=== PATIENT | male | born 1980 | race Caucasian/White ===

== ENCOUNTER 2019-01-26 12:36 | Inpatient (IN) | payer MEDICAID ==
[~2019-01-26] VITALS: Ht 193 cm; Wt 113.4 kg
[2019-01-26] MEDS ORDERED: piperacillin/tazo 3.375gm/50ml 50 ML IV ONE (13:05)
[2019-01-26] MEDS ORDERED: iohexol 300mg/ml 100ml inj. ONE (13:11)
[2019-01-26 13:35] LABS: BASOPHILS % (AUTO) 0.4 % (0-1); EOSINOPHILS # (AUTO) 0.1 X10'3 (0-0.9); EOSINOPHILS % (AUTO) 0.9 % (0-6); HEMATOCRIT 48.7 % (42.0-52.0); HEMOGLOBIN 15.9 g/dl (14.0-17.9); LYMPHOCYTES # (AUTO) 2.3 X10'3 (1.1-4.8); LYMPHOCYTES % (AUTO) 17.1 % (21-51); MEAN CORPUSCULAR HGB CONC 32.7 g/dL (33.0-36.5); MEAN CORPUSCULAR VOLUME 85.7 FL (78-98); MEAN PLATELET VOLUME 9.2 FL (7.4-10.4); MONOCYTES # (AUTO) 1.1 X10'3 (0-0.9); MONOCYTES % (AUTO) 7.7 % (2-12); NEUTROPHILS # (AUTO) 10.1 X10'3 (1.8-7.7); NEUTROPHILS % (AUTO) 73.9 % (42-75); PLATELET COUNT 258 X10'3 (140-440); RED BLOOD COUNT 5.68 X10'6 (4.70-6.10); WHITE BLOOD COUNT 13.7 X10'3 (4.5-11.0)
[2019-01-26] MEDS ORDERED: ondansetron/PF 4mg/2ml inj IV ONE (13:35)
[2019-01-26] MEDS: morphine 4 MG/ML inj SYRINge IV PRN ×3 (13:36→15:34)
[2019-01-26 13:51] LABS: ALANINE AMINOTRANSFERASE 37 U/L (12-78); ALBUMIN 3.8 G/DL (3.4-5.0); ALBUMIN/GLOBULIN RATIO 1.1 (1.1-1.5); ALKALINE PHOSPHATASE 108 IU/L (46-116); ANION GAP 6 (8-16); ASPARTATE AMINO TRANSFERASE 14 U/L (10-37); BILIRUBIN,TOTAL 0.6 MG/DL (0.1-1.0); BLOOD UREA NITROGEN 9 MG/DL (7-18); BUN/CREATININE RATIO 8.8 (5.4-32.0); CALCIUM 9.3 MG/DL (8.5-10.1); CHLORIDE 102 MMOL/L (99-107); CREATININE 1.02 MG/DL (0.60-1.10); GLUCOSE 106 MG/DL (70-104); MAGNESIUM 2.1 MG/DL (1.5-2.4); POTASSIUM 4.5 MMOL/L (3.5-5.1); SODIUM 138 MMOL/L (135-145); TOTAL CARBON DIOXIDE 29.8 MMOL/L (24-32); TOTAL PROTEIN 7.4 G/DL (6.4-8.2); eGFR 83 ML/MIN
--- NOTE | 2019-01-26 15:03 | NUR ---
NO ETA GOING TO [facility] AT THIS TIME.
[2019-01-26] MEDS ORDERED: Cipro HC otic suspension 10ML bottle LEFT EAR STA (15:17)
[2019-01-26] MEDS ORDERED: NO HOME MEDS (15:29)
[2019-01-26] MEDS: Cipro HC otic suspension 10ML bottle LEFT EAR SCH (15:43)
[2019-01-26] MEDS ORDERED: morphine 2 MG/ML inj. syringe IV PRN (15:50)
[2019-01-26] MEDS ORDERED: diphenhydrAMINE 25mg capsule PO PRN (15:50)
[2019-01-26] MEDS: K and/or MAG REPLACEMENT MC SCH (15:50)
[2019-01-26] MEDS ORDERED: acetaminophen 650mg rectal suppository RC PRN (15:50)
[2019-01-26] MEDS ORDERED: magnesium Cl slow-release 64mg tablet PO PRN (15:50)
[2019-01-26] MEDS ORDERED: HYDROcodone/acetaminophen 5mg/325mg tablet PO PRN (15:50)
[2019-01-26] MEDS ORDERED: potassium CL 10mEq/100ml bag 100 ML IV PRN (15:50)
[2019-01-26] MEDS ORDERED: potassium Cl 20 mEq SR tablet PO PRN ×2 (15:50)
[2019-01-26] MEDS ORDERED: magnesium 2GM in 50ml NS 50 ML IV PRN (15:50)
[2019-01-26] MEDS ORDERED: potassium Cl 40MEQ/NS 500ml 500 ML IV PRN (15:50)
[2019-01-26] MEDS ORDERED: bisacodyl 10mg suppository rectal RC PRN (15:50)
[2019-01-26] MEDS ORDERED: levoFLOXACIN-Levaquin 750MG/D5 150 ML IV SCH (15:50)
[2019-01-26] MEDS ORDERED: mag hydrox/Alum hydrox/simeth 30ml oral suspension PO PRN (15:50)
[2019-01-26] MEDS ORDERED: magnesium 4gm in 100ml NS 100 ML IV PRN (15:50)
[2019-01-26] MEDS ORDERED: acetaminophen 325mg tablet PO PRN ×2 (15:50)
[2019-01-26] MEDS ORDERED: ondansetron/PF 4mg/2ml inj IV PRN (15:50)
[2019-01-26] MEDS ORDERED: magnesium hydroxide 30ml (MOM) UD suspension PO PRN (15:50)
[2019-01-26] MEDS ORDERED: cefepime 2g/NS 100ml ADVANTAGE 100 ML IV SCH (16:40)
[2019-01-26] MEDS: HYDROcodone/acetaminophen 10/325mg tab PO PRN (16:47)
[2019-01-26] MEDS: normal saline 1000ml 1,000 ML IV SCH (18:14)
[2019-01-26 18:49] VITALS: BP 148/84
[2019-01-26] MEDS: cefepime 2g/NS 100ml ADVANTAGE 100 ML IV SCH (19:06)
--- NOTE | 2019-01-26 20:31 | NUR ---
Patient in room [facility]TH[facility] 4024. I have received report from GRETCHEN Rodriguez and had the opportunity to ask questions and assume patient care. Addendum: 01/26/19 at 2031 by Viviana Hoffman RN Amended: Links added.
[2019-01-26 22:27] VITALS: BP 164/81
--- NOTE | 2019-01-26 23:47 | NUR ---
2 mg of morphine given at 0.
[2019-01-26] MEDS: morphine 2 MG/ML inj. syringe IV PRN (23:51)
[2019-01-27] MEDS: normal saline 1000ml 1,000 ML IV SCH ×4 (00:43→19:34)
[2019-01-27 05:20] VITALS: BP 144/85
[2019-01-27 06:00] VITALS: BP 164/81
[2019-01-27 06:01] LABS: BASOPHILS # (AUTO) 0.1 X10'3 (0-0.2); BASOPHILS % (AUTO) 0.6 % (0-1); EOSINOPHILS # (AUTO) 0.1 X10'3 (0-0.9); EOSINOPHILS % (AUTO) 0.9 % (0-6); HEMATOCRIT 46.6 % (42.0-52.0); HEMOGLOBIN 15.8 g/dl (14.0-17.9); LYMPHOCYTES # (AUTO) 1.3 X10'3 (1.1-4.8); LYMPHOCYTES % (AUTO) 11.6 % (21-51); MEAN CORPUSCULAR HEMOGLOBIN 28.6 PG (27.0-31.0); MEAN CORPUSCULAR HGB CONC 33.9 g/dL (33.0-36.5); MEAN CORPUSCULAR VOLUME 84.5 FL (78-98); MEAN PLATELET VOLUME 9.2 FL (7.4-10.4); MONOCYTES # (AUTO) 0.7 X10'3 (0-0.9); MONOCYTES % (AUTO) 6.4 % (2-12); NEUTROPHILS # (AUTO) 8.8 X10'3 (1.8-7.7); NEUTROPHILS % (AUTO) 80.5 % (42-75); PLATELET COUNT 244 X10'3 (140-440); RED BLOOD COUNT 5.51 X10'6 (4.70-6.10); RED CELL DISTRIBUTION WIDTH 13.8 % (11.5-14.5); WHITE BLOOD COUNT 10.9 X10'3 (4.5-11.0)
--- NOTE | 2019-01-27 06:21 | NUR ---
Problems reprioritized. Patient report given, questions answered & plan of care reviewed with GRETCHEN Pedro. Addendum: 01/27/19 at 0621 by Viviana Hoffman RN Amended: Links added.
[2019-01-27 06:40] LABS: ALANINE AMINOTRANSFERASE 37 U/L (12-78); ALBUMIN 3.2 G/DL (3.4-5.0); ALBUMIN/GLOBULIN RATIO 0.9 (1.1-1.5); ALKALINE PHOSPHATASE 102 IU/L (46-116); ANION GAP 10 (8-16); ASPARTATE AMINO TRANSFERASE 12 U/L (10-37); BILIRUBIN,TOTAL 0.7 MG/DL (0.1-1.0); BLOOD UREA NITROGEN 10 MG/DL (7-18); BUN/CREATININE RATIO 10.3 (5.4-32.0); CALCIUM 8.1 MG/DL (8.5-10.1); CHLORIDE 102 MMOL/L (99-107); CREATININE 0.97 MG/DL (0.60-1.10); GLUCOSE 129 MG/DL (70-104); MAGNESIUM 2.4 MG/DL (1.5-2.4); POTASSIUM 4.3 MMOL/L (3.5-5.1); SODIUM 138 MMOL/L (135-145); TOTAL CARBON DIOXIDE 25.8 MMOL/L (24-32); TOTAL PROTEIN 6.7 G/DL (6.4-8.2); eGFR 88 ML/MIN
[2019-01-27] MEDS: K and/or MAG REPLACEMENT MC SCH (08:05)
[2019-01-27] MEDS: HYDROcodone/acetaminophen 10/325mg tab PO PRN ×4 (08:15→23:44)
[2019-01-27] MEDS: cefepime 2g/NS 100ml ADVANTAGE 100 ML IV SCH ×2 (08:15→19:35)
[2019-01-27 10:00] VITALS: BP 128/85
[2019-01-27] MEDS: Cipro HC otic suspension 10ML bottle LEFT EAR SCH ×2 (10:44→19:35)
[2019-01-27] MEDS: morphine 2 MG/ML inj. syringe IV PRN (16:27)
[2019-01-27] MEDS ORDERED: VANCOMYCIN LEVEL IV ONE (16:30)
[2019-01-27 18:00] VITALS: BP 133/89
--- NOTE | 2019-01-27 18:30 | NUR ---
Patient in room ORTH[facility] 4024B. I have received report from GRETCHEN Pedro and had the opportunity to ask questions and assume patient care.
--- NOTE | 2019-01-27 18:32 | NUR ---
Problems reprioritized. Patient report given, questions answered & plan of care reviewed with Michell GODINEZ.
[2019-01-27 22:00] VITALS: BP 135/76
--- NOTE | 2019-01-27 22:30 | NUR ---
changed out ear wick tonight. Patient ear canal very swollen but not red at this time. Will continue to monitor.
[2019-01-28] MEDS: HYDROcodone/acetaminophen 10/325mg tab PO PRN ×4 (05:35→23:01)
[2019-01-28] MEDS: normal saline 1000ml 1,000 ML IV SCH ×2 (05:36→17:03)
[2019-01-28 06:00] VITALS: BP 142/89
[2019-01-28 06:16] LABS: BASOPHILS % (AUTO) 0.6 % (0-1); EOSINOPHILS # (AUTO) 0.3 X10'3 (0-0.9); EOSINOPHILS % (AUTO) 3.5 % (0-6); HEMATOCRIT 44.3 % (42.0-52.0); HEMOGLOBIN 14.9 g/dl (14.0-17.9); LYMPHOCYTES # (AUTO) 1.9 X10'3 (1.1-4.8); LYMPHOCYTES % (AUTO) 24.1 % (21-51); MEAN CORPUSCULAR HEMOGLOBIN 28.4 PG (27.0-31.0); MEAN CORPUSCULAR HGB CONC 33.7 g/dL (33.0-36.5); MEAN CORPUSCULAR VOLUME 84.4 FL (78-98); MEAN PLATELET VOLUME 9.4 FL (7.4-10.4); MONOCYTES # (AUTO) 0.6 X10'3 (0-0.9); MONOCYTES % (AUTO) 7.9 % (2-12); NEUTROPHILS % (AUTO) 63.9 % (42-75); PLATELET COUNT 240 X10'3 (140-440); RED BLOOD COUNT 5.25 X10'6 (4.70-6.10); RED CELL DISTRIBUTION WIDTH 13.9 % (11.5-14.5); WHITE BLOOD COUNT 7.8 X10'3 (4.5-11.0)
--- NOTE | 2019-01-28 06:20 | NUR ---
Problems reprioritized. Patient report given, questions answered & plan of care reviewed with Cesia Jackson.
[2019-01-28 06:37] LABS: ALANINE AMINOTRANSFERASE 39 U/L (12-78); ALBUMIN/GLOBULIN RATIO 0.9 (1.1-1.5); ANION GAP 6 (8-16); ASPARTATE AMINO TRANSFERASE 16 U/L (10-37); BILIRUBIN,TOTAL 0.5 MG/DL (0.1-1.0); BLOOD UREA NITROGEN 10 MG/DL (7-18); BUN/CREATININE RATIO 10.5 (5.4-32.0); CALCIUM 7.9 MG/DL (8.5-10.1); CHLORIDE 104 MMOL/L (99-107); CREATININE 0.95 MG/DL (0.60-1.10); GLUCOSE 114 MG/DL (70-104); POTASSIUM 3.9 MMOL/L (3.5-5.1); SODIUM 139 MMOL/L (135-145); TOTAL CARBON DIOXIDE 28.6 MMOL/L (24-32); TOTAL PROTEIN 6.4 G/DL (6.4-8.2); eGFR 90 ML/MIN
[2019-01-28 06:38] LABS: ALKALINE PHOSPHATASE 104 IU/L (46-116)
[2019-01-28] MEDS: K and/or MAG REPLACEMENT MC SCH (08:00)
[2019-01-28] MEDS: morphine 2 MG/ML inj. syringe IV PRN ×2 (08:02→19:18)
[2019-01-28] MEDS ORDERED: VANCOMYCIN LEVEL IV ONE (08:30)
[2019-01-28] MEDS: cefepime 2g/NS 100ml ADVANTAGE 100 ML IV SCH ×2 (08:35→19:18)
[2019-01-28] MEDS: Cipro HC otic suspension 10ML bottle LEFT EAR SCH ×2 (08:36→19:18)
[2019-01-28 10:00] VITALS: BP 128/70
[2019-01-28 18:00] VITALS: BP 124/87
--- NOTE | 2019-01-28 18:09 | NUR ---
PAGER ID: [phone] MESSAGE: Renetta aranda [phone] re Steven Forte in [id number]- he is requesting a sleeping pill for tonight as he was not able to sleep well last night
[2019-01-28] MEDS ORDERED: temazepam 15mg capsule PO PRN (18:15)
--- NOTE | 2019-01-28 18:18 | NUR ---
Patient in room ORTHO 4024B. I have received report from GRETCHEN FREITAS and had the opportunity to ask questions and assume patient care.
[2019-01-28] MEDS: lactobacillus rhamnosus 10,000 MMU CELLS/CAPSULE PO SCH (19:18)
[2019-01-28 21:53] VITALS: BP 166/86
[2019-01-29] MEDS: normal saline 1000ml 1,000 ML IV SCH (03:47)
[2019-01-29] MEDS: HYDROcodone/acetaminophen 10/325mg tab PO PRN (04:29)
[2019-01-29 06:00] VITALS: BP 138/78
--- NOTE | 2019-01-29 06:19 | NUR ---
Problems reprioritized. Patient report given, questions answered & plan of care reviewed with GRETCHEN FREITAS.
[2019-01-29 06:30] LABS: BASOPHILS % (AUTO) 0.5 % (0-1); EOSINOPHILS # (AUTO) 0.3 X10'3 (0-0.9); EOSINOPHILS % (AUTO) 4.6 % (0-6); HEMATOCRIT 43.5 % (42.0-52.0); HEMOGLOBIN 14.5 g/dl (14.0-17.9); MEAN CORPUSCULAR HEMOGLOBIN 28.5 PG (27.0-31.0); MEAN CORPUSCULAR HGB CONC 33.4 g/dL (33.0-36.5); MEAN CORPUSCULAR VOLUME 85.1 FL (78-98); MEAN PLATELET VOLUME 9.1 FL (7.4-10.4); MONOCYTES # (AUTO) 0.6 X10'3 (0-0.9); MONOCYTES % (AUTO) 8.6 % (2-12); NEUTROPHILS # (AUTO) 4.3 X10'3 (1.8-7.7); NEUTROPHILS % (AUTO) 58.3 % (42-75); PLATELET COUNT 243 X10'3 (140-440); RED BLOOD COUNT 5.11 X10'6 (4.70-6.10); RED CELL DISTRIBUTION WIDTH 13.9 % (11.5-14.5); WHITE BLOOD COUNT 7.3 X10'3 (4.5-11.0)
[2019-01-29 06:48] LABS: ALANINE AMINOTRANSFERASE 32 U/L (12-78); ALBUMIN 2.9 G/DL (3.4-5.0); ALBUMIN/GLOBULIN RATIO 0.9 (1.1-1.5); ALKALINE PHOSPHATASE 96 IU/L (46-116); ANION GAP 6 (8-16); ASPARTATE AMINO TRANSFERASE 11 U/L (10-37); BILIRUBIN,TOTAL 0.5 MG/DL (0.1-1.0); BLOOD UREA NITROGEN 11 MG/DL (7-18); BUN/CREATININE RATIO 12.5 (5.4-32.0); CALCIUM 7.7 MG/DL (8.5-10.1); CHLORIDE 105 MMOL/L (99-107); CREATININE 0.88 MG/DL (0.60-1.10); GLUCOSE 107 MG/DL (70-104); POTASSIUM 3.7 MMOL/L (3.5-5.1); SODIUM 139 MMOL/L (135-145); TOTAL CARBON DIOXIDE 27.8 MMOL/L (24-32); TOTAL PROTEIN 6.3 G/DL (6.4-8.2); eGFR > 90 ML/MIN
[2019-01-29 07:30] LABS: PHOSPHORUS 3.7 MG/DL (2.3-4.5)
[2019-01-29] MEDS: K and/or MAG REPLACEMENT MC SCH (08:00)
[2019-01-29] MEDS: lactobacillus rhamnosus 10,000 MMU CELLS/CAPSULE PO SCH (08:14)
[2019-01-29] MEDS: Cipro HC otic suspension 10ML bottle LEFT EAR SCH (08:14)
[2019-01-29] MEDS: cefepime 2g/NS 100ml ADVANTAGE 100 ML IV SCH (08:14)
[2019-01-29 10:00] VITALS: BP 133/94
[2019-01-29] MEDS ORDERED: LACT1CAP26 PO (10:24)
[2019-01-29] MEDS ORDERED: CIPR250T4 PO (10:24)
== END 2019-01-29 12:05 | disposition home or self-care (01) | DRG 720 ==
LOC: ER 12:36 → ORTHO 4S 16:38 → INTOOBSV 16:55 → OBSVTOIN 16:55 → UNDOADMOB 16:55 → ORTHO 4S 17:00
PROVIDERS: ADMIT Family Medicine; ATTEND Family Medicine
DX: A41.9 Sepsis, unspecified organism (principal); H70.002 Acute mastoiditis without complications, left ear; H60.502 Unspecified acute noninfective otitis externa, left ear; H66.92 Otitis media, unspecified, left ear; F17.210 Nicotine dependence, cigarettes, uncomplicated; H61.032 Chondritis of left external ear; F12.10 Cannabis abuse, uncomplicated; L03.211 Cellulitis of face; B96.5 Pseudomonas (aeruginosa) (mallei) (pseudomallei) as the cause of diseases classified elsewhere; H60.12 Cellulitis of left external ear; Z83.3 Family history of diabetes mellitus; Z71.6 Tobacco abuse counseling; Z88.1 Allergy status to other antibiotic agents
CPT/HCPCS: 36415; 70480; 80053; 83036; 83605; 83735; 84100; 84145; 85025; 87040; 87070; 87075; 87077; 87081; 87102; 87186; 96365; 96366; 96375; 99285; G0378; J0692; J1956; J2270; J2405; J2543; J3370; J7030; Q9967